=== PATIENT | female | born 1955 | race Caucasian/White ===

== ENCOUNTER 2018-04-30 09:44 | Outpatient (CLI) | payer MEDICARE ==
--- NOTE | 2018-04-30 12:04 | RAD ---
THREE VIEWS RIGHT SHOULDER: Date: 04-30-18 History: Acute pain right shoulder. FINDINGS: There is osteoarthritis involving the right shoulder. Sclerotic density is seen within the region of the spine and acromion which are nonspecific and probably related to bone island. There is no fractur e at this location identified. Coracoclavicular and acromioclavicular distances are within normal funes its. Degenerative changes are seen in the thoracic spine. There is partial visualization of post-surg ical changes lower cervical spine. IMPRESSION: 1. Right acromioclavicular joint osteoarthritis. 2. No acute osseous abnormality is seen involving the right shoulder. POS: [facility]
== END 2018-04-30 09:45 | disposition home or self-care (01) ==
LOC: RAD 09:44
PROVIDERS: ATTEND Nurse Practitioner Family
DX: M25.511 Pain in right shoulder (principal); M19.011 Primary osteoarthritis, right shoulder

== ENCOUNTER 2019-09-09 09:45 | Outpatient (CLI) | payer MEDICARE ==
--- NOTE | 2019-09-09 10:53 | MRI ---
MR the lumbar spine without contrast INDICATION: Postlaminectomy syndrome with low back pain; history of fall 2 weeks ago COMPARISON: CT lumbar spine dated July 22, 2009 TECHNIQUE: Multiplanar multisequence MR images were obtained of lumbar spine without IV contrast. FINDINGS: Bone marrow: There is susceptibility artifact from an Axialif screw interbody screw system traversing S1-L4. The remaining lumbar marrow signal intensity appears within normal limits. There is postsurgical change of a left hemilaminectomy at L4. There are bilateral hemilaminectomies at L5. Sma ll bony hemangioma is seen within the L1 vertebra. Distal spinal cord and conus: Normal. The conus seen to terminate at L1. Visualized retroperitoneum and paraspinal soft tissues: Normal. Vertebral levels: L5-S1: There is a broad-based osteophyte complex with facet hypertrophy inducing mild neural foramina l narrowing. This also induces mild lateral recess narrowing on image 29 of series 7 without definite impingement.. L4-5: There is a broad-based osteophyte complex with facet hypertrophy inducing mild bilateral neural foraminal narrowing, left greater than right. L3-4: There is a broad-based disc bulge with facet hypertrophy and ligamentum flavum hypertrophy karen cing severe central canal narrowing with moderate to severe right and moderate left neural foraminal narrowing. L2-3: There is a broad-based bulge with facet hypertrophy inducing moderate to severe central canal n arrowing with moderate bilateral neural foraminal narrowing. L1-L2: There is a broad-based disc osteophyte complex with facet hypertrophy inducing mild to moderat e right and moderate left neural foraminal narrowing. T12-L1: There is a broad-based bulge but no appreciable central canal or neural foraminal narrowing. IMPRESSION: 1. Postoperative lumbar spine consistent with an Axialif screw system extending from L4 through S1. T here are also laminectomy changes at L4 and L5. 2. 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 There is severe central canal narrowing at L3-4 with moderate to severe right and moderate left neural foraminal narrowing. There is moderate to severe central canal narrowing at L2-3 with moderate bilateral neural foraminal narrowing . 3. Mild to moderate right and moderate left neural foraminal narrowing at L1-L2. Mild lateral recess narrowing and mild bilateral neural foraminal narrowing at L5-S1.
== END 2019-09-09 09:46 | disposition home or self-care (01) ==
LOC: BICMRI 09:45
PROVIDERS: ATTEND Nurse Practitioner Family
DX: M96.1 Postlaminectomy syndrome, not elsewhere classified (principal); M51.36 Other intervertebral disc degeneration, lumbar region; M48.061 Spinal stenosis, lumbar region without neurogenic claudication; M48.07 Spinal stenosis, lumbosacral region; Z98.890 Other specified postprocedural states
CPT/HCPCS: 72148

== ENCOUNTER 2021-09-15 11:15 | Outpatient (CLI) | payer MEDICARE | END 2021-09-15 11:16 | disposition home or self-care (01) | LOC: CT 11:15 | PROVIDERS: ATTEND Family Medicine | DX: N28.89 Other specified disorders of kidney and ureter (principal); R91.1 Solitary pulmonary nodule; K76.0 Fatty (change of) liver, not elsewhere classified; K57.30 Diverticulosis of large intestine without perforation or abscess without bleeding | CPT/HCPCS: 74170; 82565 ==

== ENCOUNTER 2021-09-28 08:43 | Outpatient (CLI) | payer MEDICARE ==
[~2021-09-28 08:43] MED LIST: Iopamidol 370 76% 100 ML VIAL ONE
== END 2021-09-28 08:44 | disposition home or self-care (01) ==
LOC: NM 08:43
PROVIDERS: ATTEND Family Medicine
DX: N28.89 Other specified disorders of kidney and ureter (principal); R91.1 Solitary pulmonary nodule; M19.90 Unspecified osteoarthritis, unspecified site; M47.819 Spondylosis without myelopathy or radiculopathy, site unspecified
CPT/HCPCS: 71260; 78306; 82565; A9503

== ENCOUNTER 2021-10-22 15:37 | Outpatient (CLI) | payer MEDICARE | END 2021-10-22 15:38 | disposition home or self-care (01) | LOC: LABBT 15:37 | PROVIDERS: ATTEND Urology | DX: Z01.818 Encounter for other preprocedural examination (principal); E11.42 Type 2 diabetes mellitus with diabetic polyneuropathy; E11.40 Type 2 diabetes mellitus with diabetic neuropathy, unspecified; M46.1 Sacroiliitis, not elsewhere classified; I10 Essential (primary) hypertension; M48.062 Spinal stenosis, lumbar region with neurogenic claudication; N28.89 Other specified disorders of kidney and ureter; E66.9 Obesity, unspecified; N28.1 Cyst of kidney, acquired; R91.1 Solitary pulmonary nodule; Z20.822 Contact with and (suspected) exposure to COVID-19 | CPT/HCPCS: 71046; 80048; 85027; 85610; 85730; 86850; 86900; 86901; 93005; U0003; U0005; 93010 ==

== ENCOUNTER 2021-10-22 15:45 | Inpatient (IN) | payer MEDICARE ==
[2021-10-22 11:00] VITALS: BMI 35.4
[2021-10-22 17:36] LABS: Hemoglobin 12.3 g/dL (12.0-15.5); Mean Corpuscular HGB CONC 32.2 g/dL (32.0-36.0); Mean Corpuscular Hemoglobin 30.1 pg (27.0-33.0); Mean Corpuscular Volume 93.4 fl (81.6-98.3); Mean Platelet Volume 9.9 fl (7.4-10.4); Platelet Count 288 10x3/uL (150-450); RBC Distribution Width 12.3 % (11.5-14.5); Red Blood Cell (RBC) Count 4.09 10x6/uL (3.90-5.03); White Blood Cell (WBC) Count 7.7 10x3/uL (3.5-10.5)
[2021-10-22 17:39] LABS: Anion Gap 16 mmol/L (10-20); BUN (Urea Nitrogen) 15 mg/dL (9.8-20.1); Calc. Creatinine Clearance 0 mL/min (70-130); Carbon Dioxide 25 mmol/L (23-31); Chloride 102 mmol/L (98-107); Glucose 174 mg/dL (80-115); Potassium 4.1 mmol/L (3.5-5.1); Sodium 139 mmol/L (136-145)
[2021-10-22 17:42] LABS: INR-International Normal Ratio 0.9; PTT 23.5 sec (22.0-33.0); Prothrombin Time 10.4 sec (9.5-12.1)
[2021-10-23 12:54] LABS: SARS-CoV-2 PCR by NAA Not Detected (NotDetected)
[2021-11-03 19:10] LABS: SARS-CoV-2 PCR by NAA Not Detected (NotDetected)
[2021-11-08] MEDS ORDERED: Levofloxacin 500 mg/D5W 100 ml Premix Bag ONE (06:33)
[2021-11-08] MEDS ORDERED: Sodium Chloride 0.9% 10 ML ONE (06:55)
[2021-11-08] MEDS ORDERED: Midazolam HCl 2 mg/2 ml Vial ONE (06:57)
[2021-11-08] MEDS ORDERED: Lidocaine 1.5% w/Epi 1:200K 30 ML VIAL (Epid Use) ONE (07:14)
[2021-11-08] MEDS ORDERED: Glycopyrrolate 0.2 MG/ML 5 ML SYRINGE ONE (07:14)
[2021-11-08] MEDS ORDERED: PROPOFOL 200 MG/20 ML VIAL ONE (07:14)
[2021-11-08] MEDS ORDERED: Rocuronium Bromide 10 MG/ML (10ML VIAL) ONE (07:14)
[2021-11-08] MEDS ORDERED: ePHEDrine 50 MG/ML VIAL ONE (07:14)
[2021-11-08] MEDS ORDERED: Ondansetron PF 4 MG/2 ML Vial ONE (07:14)
[2021-11-08] MEDS ORDERED: PHENYLEPHRINE-NS 100 MCG/ML 10 ML SYRINGE ONE (07:14)
[2021-11-08] MEDS ORDERED: ceFAZolin 2 GM/Dextrose 50 ML IVPB ONE (07:31)
[2021-11-08] MEDS ORDERED: Fentanyl 100 MCG/2 ML VIAL ONE ×4 (07:33→11:57)
[2021-11-08] MEDS ORDERED: Ropivacaine 0.2% HCl/PF 20 ML ONE (07:36)
[2021-11-08] MEDS ORDERED: Albumin 5% 500 ML ONE (08:29)
[2021-11-08] MEDS ORDERED: Phenylephrine 10 MG/ML VIAL ONE (08:40)
[2021-11-08] MEDS ORDERED: diphenhydrAMINE 50 MG/ML VIAL IVP PRN ×2 (09:00→20:37)
[2021-11-08] MEDS ORDERED: Naloxone HCl 0.4 mg/ml Vial IV PRN ×2 (09:00→20:37)
[2021-11-08] MEDS ORDERED: Naloxone HCl 0.4 mg/ml Vial IVP PRN (09:00)
[2021-11-08] MEDS ORDERED: Zolpidem Tartrate 5 MG TAB PO PRN (09:00)
[2021-11-08] MEDS ORDERED: Ondansetron PF 4 MG/2 ML Vial IVP PRN ×2 (09:00→20:37)
[2021-11-08] MEDS ORDERED: Fentanyl 5 mcg/Bup 0.075% Cadd 100 ML EPIDURAL SCH (09:00)
[2021-11-08] MEDS ORDERED: diphenhydrAMINE 50 MG/ML VIAL IM PRN ×2 (09:00→20:37)
[2021-11-08] MEDS ORDERED: Bupivacaine 0.25% 10 ML VIAL EPIDURAL PRN (09:00)
[2021-11-08] MEDS ORDERED: Promethazine HCl 25 MG/ML VIAL IM PRN ×2 (09:00→20:37)
[2021-11-08] MEDS ORDERED: Promethazine HCl 25 MG SUPP PR PRN (09:00)
[2021-11-08] MEDS ORDERED: traMADol HCl 50 MG TAB PO PRN ×2 (09:00)
[2021-11-08] MEDS ORDERED: diphenhydrAMINE 25 MG CAP PO PRN ×2 (09:00→20:37)
[2021-11-08] MEDS ORDERED: Hydrocerin (Eucerin) Cream 120 gm Jar TOP PRN (09:00)
[2021-11-08] MEDS ORDERED: HYDROcodone/Acetaminophen 5/325 mg Tablet PO PRN ×2 (09:00)
[2021-11-08] MEDS ORDERED: Dextrose 5% in Water 1,000 ML IV PRN (09:48)
[2021-11-08] MEDS ORDERED: Mag-Al 1200 mg/1200 mg/30 ML UDCUP PO PRN (09:48)
[2021-11-08] MEDS ORDERED: Dextrose 50% Abboject 50 ML SYRINGE SLOW IVP PRN (09:48)
[2021-11-08] MEDS ORDERED: hydrALAZINE 20 MG/ML VIAL SLOW IVP PRN ×2 (09:48)
[2021-11-08 11:15] LABS: #Eosinphils 0.1 thou/uL (0.0-0.7); #Lymphocytes 2.6 thou/uL (1.20-3.40); #Monocytes 0.5 thou/uL (0.11-0.59); %Basophils 0.1 % (0.0-1.0); %Eosinophils 0.7 % (0.0-10.0); %Lymphocytes 23.1 % (21.0-51.0); %Monocytes 4.2 % (0.0-10.0); Hemoglobin 10.2 g/dL (12.0-16.0); Mean Corpuscular HGB CONC 33.3 g/dL (32.0-36.0); Mean Corpuscular Hemoglobin 30.8 pg (27.0-31.0); Mean Corpuscular Volume 92.6 fL (78.0-98.0); Mean Platelet Volume 6.4 fL (7.4-10.4); Platelet Count 270 thou/uL (130-400); RBC Distribution Width 11.5 % (11.5-14.5); Red Blood Cell (RBC) Count 3.31 mill/uL (4.20-5.40); White Blood Cell (WBC) Count 11.2 thou/uL (4.8-10.8)
[2021-11-08 11:28] LABS: Anion Gap 15 mmol/L (10-20); BUN (Urea Nitrogen) 16 mg/dL (9.8-20.1); Calc. Creatinine Clearance 70 mL/min (70-130); Carbon Dioxide 24 mmol/L (23-31); Chloride 102 mmol/L (98-107); Glucose 167 mg/dL (80-115); Potassium 3.8 mmol/L (3.5-5.1); Sodium 137 mmol/L (136-145)
[2021-11-08] MEDS ORDERED: HYDROmorphone 2 MG/ML VIAL ONE ×2 (12:09→15:17)
[2021-11-08] MEDS ORDERED: Non-Formulary Medication 1 EACH PO PRN (12:19)
[2021-11-08] MEDS ORDERED: Promethazine HCl 25 MG/ML VIAL IM/IV PRN (12:30)
[2021-11-08] MEDS ORDERED: Ondansetron HCl/PF 4 MG/2 ML Vial IVP PRN (12:30)
[2021-11-08] MEDS ORDERED: HYDROmorphone 2 MG/ML VIAL SLOW IVP PRN (12:30)
[2021-11-08] MEDS ORDERED: Gabapentin 400 MG CAP PO SCH (15:00)
[2021-11-08] MEDS: Sodium Chloride 0.9% 1,000 ML IV SCH ×2 (15:14→22:17)
[2021-11-08 15:33] LABS: Hemoglobin 9.9 g/dL (12.0-16.0)
[2021-11-08] MEDS ORDERED: metFORMIN 500 MG TAB PO SCH (17:00)
[2021-11-08] MEDS: Gabapentin 400 MG CAP PO SCH ×2 (17:25→22:18)
[2021-11-08] MEDS ORDERED: Communication Order-Pharmacy FS SCH (20:45)
[2021-11-08] MEDS ORDERED: VENLAFAXINE HCL 150 MG PO SCH (21:00)
[2021-11-08] MEDS ORDERED: traZODone HCl 150 MG TAB PO SCH (21:00)
[2021-11-08 21:24] LABS: #Lymphocytes 2.5 thou/uL (1.20-3.40); #Monocytes 0.6 thou/uL (0.11-0.59); #Neutrophils 5.9 thou/uL (1.40-6.50); %Basophils 0.2 % (0.0-1.0); %Eosinophils 0.2 % (0.0-10.0); %Lymphocytes 27.9 % (21.0-51.0); %Monocytes 6.7 % (0.0-10.0); Hemoglobin 9.6 g/dL (12.0-16.0); Mean Corpuscular HGB CONC 34.3 g/dL (32.0-36.0); Mean Corpuscular Hemoglobin 31.9 pg (27.0-31.0); Mean Platelet Volume 6.4 fL (7.4-10.4); Platelet Count 234 thou/uL (130-400); RBC Distribution Width 11.7 % (11.5-14.5)
[2021-11-08 21:41] LABS: Lactic Acid 3.4 mmol/L (0.5-2.2)
[2021-11-08 21:46] LABS: ALT (SGPT) 17 U/L (8-55); AST (SGOT) 31 U/L (5-34); Albumin 3.6 g/dL (3.4-4.8); Alkaline Phosphatase 44 U/L (40-110); Anion Gap 13 mmol/L (10-20); BUN (Urea Nitrogen) 18 mg/dL (9.8-20.1); Bilirubin, Total 0.9 mg/dL (0.2-1.2); Calc. Creatinine Clearance 53 mL/min (70-130); Calcium 7.6 mg/dL (7.8-10.44); Carbon Dioxide 24 mmol/L (23-31); Chloride 101 mmol/L (98-107); Globulin 2.3 g/dL (2.4-3.5); Glucose 169 mg/dL (80-115); Potassium 4.1 mmol/L (3.5-5.1); Protein, Total 5.9 g/dL (5.8-8.1); Sodium 134 mmol/L (136-145)
[2021-11-08] MEDS: fentaNYL Citrate/PF 2,000 MCG in Sodium Chloride 0.9% 60 ML IV PRN (22:16)
[2021-11-08] MEDS: Bupivacaine 10 ML in Sodium Chloride 0.9% 90 ML EPIDURAL SCH (22:17)
[2021-11-08] MEDS: traZODone HCl 50 MG TAB PO SCH (22:18)
[2021-11-08] MEDS: Docusate 100 MG CAP PO SCH (22:18)
[2021-11-08] MEDS: Venlafaxine HCl XR 150 MG CAP PO SCH (22:19)
[2021-11-09] MEDS ORDERED: Sodium Chloride 0.9% 500 ML IV SCH (00:30)
[2021-11-09 02:18] LABS: Bacteria/HPF None Seen HPF (None Seen); Bilirubin Negative (Negative); Blood, Urine 1+ (Negative); Clarity Clear (Clear); Glucose, Urine (Dipstick) Normal (Negative); Ketone, Urine Negative (Negative); Leukocyte 250 Leu/uL (Negative); Nitrite Negative (Negative); Protein, Urine (Dipstick) Negative (Neg-Trace); RBC/HPF 0-3 HPF (0-3); Specific Gravity, Urine 1.013 (1.002-1.036); Squamous Epithelial 0-3 HPF (0-3); Urobilinogen Normal mg/dL (Less than 2); WBC/HPF 21-50 HPF (0-3)
[2021-11-09 02:30] LABS: Urine Culture Reflex Yes Yes
[2021-11-09 04:54] LABS: #Monocytes 0.6 thou/uL (0.11-0.59); #Neutrophils 4.5 thou/uL (1.40-6.50); %Basophils 0.1 % (0.0-1.0); %Eosinophils 0.6 % (0.0-10.0); %Lymphocytes 27.8 % (21.0-51.0); %Monocytes 8.5 % (0.0-10.0); Mean Corpuscular Hemoglobin 31.2 pg (27.0-31.0); Mean Corpuscular Volume 94.6 fL (78.0-98.0); Mean Platelet Volume 6.3 fL (7.4-10.4); Platelet Count 201 thou/uL (130-400); RBC Distribution Width 11.6 % (11.5-14.5); Red Blood Cell (RBC) Count 2.89 mill/uL (4.20-5.40); White Blood Cell (WBC) Count 7.1 thou/uL (4.8-10.8)
[2021-11-09 05:07] LABS: Lactic Acid 1.1 mmol/L (0.5-2.2)
[2021-11-09] MEDS: Acetaminophen 500 MG TAB PO PRN ×3 (05:11→22:29)
[2021-11-09] MEDS: Sodium Chloride 0.9% 1,000 ML IV SCH (05:11)
[2021-11-09 05:14] LABS: Anion Gap 12 mmol/L (10-20); BUN (Urea Nitrogen) 16 mg/dL (9.8-20.1); Calc. Creatinine Clearance 54 mL/min (70-130); Calcium 7.5 mg/dL (7.8-10.44); Carbon Dioxide 25 mmol/L (23-31); Chloride 102 mmol/L (98-107); Glucose 148 mg/dL (80-115); Potassium 4.1 mmol/L (3.5-5.1); Sodium 135 mmol/L (136-145)
[2021-11-09] MEDS: cefTRIAXone\\ROCEPHIN 1 GM in Sodium Chloride 0.9% 100 ML IVPB SCH (06:13)
[2021-11-09] MEDS ORDERED: Sodium Chloride 0.9% 1,000 ML IV SCH (07:27)
[2021-11-09] MEDS ORDERED: CYANOCOBALAMIN 500 MCG SL SCH (09:00)
[2021-11-09] MEDS ORDERED: Lisinopril/Hydrochlorothiazide 20 mg/12.5 mg Tablet PO SCH (09:00)
[2021-11-09] MEDS: Atorvastatin Calcium 40 MG TAB PO SCH (10:10)
[2021-11-09] MEDS: Gabapentin 400 MG CAP PO SCH ×3 (10:10→21:04)
[2021-11-09] MEDS: Docusate 100 MG CAP PO SCH ×2 (10:10→21:05)
[2021-11-09] MEDS: Cyanocobalamin (Vitamin B-12) 1,000 MCG TAB PO SCH (10:11)
[2021-11-09] MEDS: Aripiprazole 2 MG TAB PO SCH (12:47)
[2021-11-09] MEDS ORDERED: Ropivacaine 0.5% HCl/PF (150 MG/30 ML VIAL) ONE (13:03)
[2021-11-09] MEDS ORDERED: Ropivacaine 0.2% HCl/PF 20 ML ONE (13:03)
[2021-11-09] MEDS: traZODone HCl 50 MG TAB PO SCH (21:04)
[2021-11-09] MEDS: Venlafaxine HCl XR 150 MG CAP PO SCH (21:04)
[2021-11-10] MEDS: Bupivacaine 10 ML in Sodium Chloride 0.9% 90 ML EPIDURAL SCH (00:12)
[2021-11-10] MEDS: fentaNYL Citrate/PF 2,000 MCG in Sodium Chloride 0.9% 60 ML IV PRN (04:01)
[2021-11-10] MEDS: Acetaminophen 500 MG TAB PO PRN ×2 (05:31→20:58)
[2021-11-10] MEDS: cefTRIAXone\\ROCEPHIN 1 GM in Sodium Chloride 0.9% 100 ML IVPB SCH (06:20)
[2021-11-10 06:35] LABS: #Eosinphils 0.1 thou/uL (0.0-0.7); #Lymphocytes 1.7 thou/uL (1.20-3.40); #Monocytes 0.5 thou/uL (0.11-0.59); #Neutrophils 5.9 thou/uL (1.40-6.50); %Basophils 0.2 % (0.0-1.0); %Eosinophils 1.1 % (0.0-10.0); %Monocytes 5.9 % (0.0-10.0); %Neutrophils 71.8 % (42.0-75.0); Hemoglobin 8.5 g/dL (12.0-16.0); Mean Corpuscular HGB CONC 33.4 g/dL (32.0-36.0); Mean Corpuscular Hemoglobin 31.5 pg (27.0-31.0); Mean Corpuscular Volume 94.5 fL (78.0-98.0); Mean Platelet Volume 6.5 fL (7.4-10.4); Platelet Count 198 thou/uL (130-400); RBC Distribution Width 11.5 % (11.5-14.5); White Blood Cell (WBC) Count 8.2 thou/uL (4.8-10.8)
[2021-11-10 06:56] LABS: Anion Gap 11 mmol/L (10-20); BUN (Urea Nitrogen) 13 mg/dL (9.8-20.1); Calc. Creatinine Clearance 61 mL/min (70-130); Calcium 7.9 mg/dL (7.8-10.44); Carbon Dioxide 23 mmol/L (23-31); Chloride 103 mmol/L (98-107); Glucose 159 mg/dL (80-115); Sodium 133 mmol/L (136-145)
[2021-11-10] MEDS: Cyanocobalamin (Vitamin B-12) 1,000 MCG TAB PO SCH (08:10)
[2021-11-10] MEDS: Docusate 100 MG CAP PO SCH ×2 (08:11→20:59)
[2021-11-10] MEDS: Atorvastatin Calcium 40 MG TAB PO SCH (08:11)
[2021-11-10] MEDS: Bisacodyl 10 MG SUPP PR PRN (08:11)
[2021-11-10] MEDS: Aripiprazole 2 MG TAB PO SCH (08:11)
[2021-11-10] MEDS: Gabapentin 400 MG CAP PO SCH ×3 (08:11→20:59)
[2021-11-10] MEDS: Insulin Regular 300 UNITS/3 ML VIAL SC PRN (10:49)
[2021-11-10 12:40] LABS: Hemoglobin 8.6 g/dL (12.0-16.0)
[2021-11-10] MEDS: Venlafaxine HCl XR 150 MG CAP PO SCH (20:58)
[2021-11-10] MEDS: traZODone HCl 50 MG TAB PO SCH (20:59)
[2021-11-11] MEDS: Acetaminophen 500 MG TAB PO PRN (04:50)
[2021-11-11] MEDS: fentaNYL Citrate/PF 2,000 MCG in Sodium Chloride 0.9% 60 ML IV PRN (06:01)
[2021-11-11] MEDS: cefTRIAXone\\ROCEPHIN 1 GM in Sodium Chloride 0.9% 100 ML IVPB SCH (06:02)
[2021-11-11 06:56] LABS: White Blood Cell (WBC) Count 7.3 thou/uL (4.8-10.8)
[2021-11-11 06:57] LABS: #Eosinphils 0.1 thou/uL (0.0-0.7); #Lymphocytes 1.7 thou/uL (1.20-3.40); #Monocytes 0.4 thou/uL (0.11-0.59); #Neutrophils 5.1 thou/uL (1.40-6.50); %Basophils 0.2 % (0.0-1.0); %Eosinophils 1.5 % (0.0-10.0); %Lymphocytes 22.7 % (21.0-51.0); %Neutrophils 69.6 % (42.0-75.0); Hemoglobin 8.3 g/dL (12.0-16.0); Mean Corpuscular Hemoglobin 31.8 pg (27.0-31.0); Mean Corpuscular Volume 93.5 fL (78.0-98.0); Mean Platelet Volume 6.9 fL (7.4-10.4); Platelet Count 217 thou/uL (130-400); RBC Distribution Width 11.6 % (11.5-14.5)
[2021-11-11 07:21] LABS: Anion Gap 10 mmol/L (10-20); BUN (Urea Nitrogen) 11 mg/dL (9.8-20.1); Calc. Creatinine Clearance 73 mL/min (70-130); Calcium 8.1 mg/dL (7.8-10.44); Carbon Dioxide 26 mmol/L (23-31); Chloride 104 mmol/L (98-107); Glucose 144 mg/dL (80-115); Potassium 4.3 mmol/L (3.5-5.1); Sodium 136 mmol/L (136-145)
[2021-11-11] MEDS: Gabapentin 400 MG CAP PO SCH ×3 (08:24→21:03)
[2021-11-11] MEDS: Atorvastatin Calcium 40 MG TAB PO SCH (08:24)
[2021-11-11] MEDS: Aripiprazole 2 MG TAB PO SCH (08:24)
[2021-11-11] MEDS: Cyanocobalamin (Vitamin B-12) 1,000 MCG TAB PO SCH (08:24)
[2021-11-11] MEDS: Docusate 100 MG CAP PO SCH ×2 (08:24→21:03)
[2021-11-11] MEDS: Insulin Regular 300 UNITS/3 ML VIAL SC PRN (11:20)
[2021-11-11] MEDS: Bisacodyl 10 MG SUPP PR PRN ×2 (11:21→13:15)
[2021-11-11] MEDS ORDERED: Polyethylene Glycol 3350 17 GM Packet PO SCH (13:30)
[2021-11-11] MEDS: Acetaminophen 500 MG TAB PO SCH (17:04)
[2021-11-11] MEDS: Venlafaxine HCl XR 150 MG CAP PO SCH (21:04)
[2021-11-11] MEDS: traZODone HCl 50 MG TAB PO SCH (21:04)
[2021-11-11] MEDS: Bupivacaine 10 ML in Sodium Chloride 0.9% 90 ML EPIDURAL SCH (21:06)
[2021-11-12] MEDS: Acetaminophen 500 MG TAB PO SCH ×5 (00:07→23:23)
[2021-11-12] MEDS: cefTRIAXone\\ROCEPHIN 1 GM in Sodium Chloride 0.9% 100 ML IVPB SCH (06:01)
[2021-11-12 07:17] LABS: #Eosinphils 0.2 thou/uL (0.0-0.7); #Monocytes 0.6 thou/uL (0.11-0.59); #Neutrophils 4.7 thou/uL (1.40-6.50); %Basophils 0.5 % (0.0-1.0); %Eosinophils 2.9 % (0.0-10.0); %Lymphocytes 26.5 % (21.0-51.0); %Monocytes 7.9 % (0.0-10.0); %Neutrophils 62.1 % (42.0-75.0); Hemoglobin 8.2 g/dL (12.0-16.0); Mean Corpuscular HGB CONC 32.7 g/dL (32.0-36.0); Mean Corpuscular Hemoglobin 31.1 pg (27.0-31.0); Mean Corpuscular Volume 95.3 fL (78.0-98.0); Mean Platelet Volume 6.4 fL (7.4-10.4); Platelet Count 276 thou/uL (130-400); RBC Distribution Width 11.7 % (11.5-14.5); Red Blood Cell (RBC) Count 2.62 mill/uL (4.20-5.40); White Blood Cell (WBC) Count 7.5 thou/uL (4.8-10.8)
[2021-11-12 07:32] LABS: Anion Gap 11 mmol/L (10-20); BUN (Urea Nitrogen) 11 mg/dL (9.8-20.1); Calc. Creatinine Clearance 73 mL/min (70-130); Calcium 8.2 mg/dL (7.8-10.44); Carbon Dioxide 26 mmol/L (23-31); Chloride 105 mmol/L (98-107); Glucose 122 mg/dL (80-115); Sodium 138 mmol/L (136-145)
[2021-11-12] MEDS: Docusate 100 MG CAP PO SCH ×2 (08:18→20:13)
[2021-11-12] MEDS: Cyanocobalamin (Vitamin B-12) 1,000 MCG TAB PO SCH (08:18)
[2021-11-12] MEDS: Aripiprazole 2 MG TAB PO SCH (08:18)
[2021-11-12] MEDS: Gabapentin 400 MG CAP PO SCH ×3 (08:19→20:14)
[2021-11-12] MEDS: Atorvastatin Calcium 40 MG TAB PO SCH (08:19)
[2021-11-12] MEDS: Polyethylene Glycol 3350 17 GM Packet PO SCH (08:19)
[2021-11-12] MEDS: fentaNYL Citrate/PF 2,000 MCG in Sodium Chloride 0.9% 60 ML IV PRN (14:03)
[2021-11-12] MEDS ORDERED: Amlodipine 5 MG TAB PO SCH (15:30)
[2021-11-12] MEDS: Venlafaxine HCl XR 150 MG CAP PO SCH (21:53)
[2021-11-12] MEDS: traZODone HCl 50 MG TAB PO SCH (21:53)
[2021-11-13] MEDS ORDERED: Acetaminophen 500 MG TAB PO PRN (04:05)
[2021-11-13] MEDS: HYDROcodone/Acetaminophen 10/325 mg Tablet PO PRN ×3 (04:51→20:17)
[2021-11-13 05:28] LABS: #Eosinphils 0.2 thou/uL (0.0-0.7); #Lymphocytes 1.7 thou/uL (1.20-3.40); #Monocytes 0.7 thou/uL (0.11-0.59); #Neutrophils 4.2 thou/uL (1.40-6.50); %Basophils 0.2 % (0.0-1.0); %Eosinophils 3.3 % (0.0-10.0); %Lymphocytes 25.2 % (21.0-51.0); %Monocytes 9.9 % (0.0-10.0); %Neutrophils 61.5 % (42.0-75.0); Hemoglobin 8.7 g/dL (12.0-16.0); Mean Corpuscular Hemoglobin 31.2 pg (27.0-31.0); Mean Corpuscular Volume 94.5 fL (78.0-98.0); Mean Platelet Volume 6.4 fL (7.4-10.4); Platelet Count 312 thou/uL (130-400); RBC Distribution Width 11.7 % (11.5-14.5); Red Blood Cell (RBC) Count 2.79 mill/uL (4.20-5.40); White Blood Cell (WBC) Count 6.8 thou/uL (4.8-10.8)
[2021-11-13 05:48] LABS: Anion Gap 12 mmol/L (10-20); BUN (Urea Nitrogen) 11 mg/dL (9.8-20.1); Calc. Creatinine Clearance 80 mL/min (70-130); Carbon Dioxide 24 mmol/L (23-31); Chloride 105 mmol/L (98-107); Potassium 3.9 mmol/L (3.5-5.1); Sodium 137 mmol/L (136-145)
[2021-11-13 05:49] LABS: Calcium 8.6 mg/dL (7.8-10.44); Glucose 121 mg/dL (80-115)
[2021-11-13] MEDS: Polyethylene Glycol 3350 17 GM Packet PO SCH (08:06)
[2021-11-13] MEDS: Amlodipine 5 MG TAB PO SCH (08:07)
[2021-11-13] MEDS: Cyanocobalamin (Vitamin B-12) 1,000 MCG TAB PO SCH (08:07)
[2021-11-13] MEDS: Atorvastatin Calcium 40 MG TAB PO SCH (08:07)
[2021-11-13] MEDS: Gabapentin 400 MG CAP PO SCH ×3 (08:07→20:16)
[2021-11-13] MEDS: Aripiprazole 2 MG TAB PO SCH (08:08)
[2021-11-13] MEDS: Docusate 100 MG CAP PO SCH ×2 (08:08→20:16)
[2021-11-13] MEDS: metFORMIN 500 MG TAB PO SCH (16:52)
[2021-11-13] MEDS: traZODone HCl 50 MG TAB PO SCH (20:17)
[2021-11-13] MEDS: Venlafaxine HCl XR 150 MG CAP PO SCH (20:17)
[2021-11-14] MEDS: HYDROcodone/Acetaminophen 10/325 mg Tablet PO PRN ×4 (00:15→13:30)
[2021-11-14 05:09] LABS: #Eosinphils 0.3 thou/uL (0.0-0.7); #Lymphocytes 2.5 thou/uL (1.20-3.40); #Monocytes 0.6 thou/uL (0.11-0.59); #Neutrophils 3.8 thou/uL (1.40-6.50); %Basophils 0.5 % (0.0-1.0); %Eosinophils 3.7 % (0.0-10.0); %Lymphocytes 34.5 % (21.0-51.0); %Monocytes 8.7 % (0.0-10.0); %Neutrophils 52.6 % (42.0-75.0); Hemoglobin 8.5 g/dL (12.0-16.0); Mean Corpuscular HGB CONC 33.5 g/dL (32.0-36.0); Mean Corpuscular Hemoglobin 31.7 pg (27.0-31.0); Mean Corpuscular Volume 94.5 fL (78.0-98.0); Mean Platelet Volume 6.4 fL (7.4-10.4); Platelet Count 336 thou/uL (130-400); RBC Distribution Width 11.6 % (11.5-14.5); Red Blood Cell (RBC) Count 2.68 mill/uL (4.20-5.40); White Blood Cell (WBC) Count 7.3 thou/uL (4.8-10.8)
[2021-11-14 05:33] LABS: Anion Gap 10 mmol/L (10-20); BUN (Urea Nitrogen) 11 mg/dL (9.8-20.1); Calc. Creatinine Clearance 94 mL/min (70-130); Calcium 8.6 mg/dL (7.8-10.44); Carbon Dioxide 28 mmol/L (23-31); Chloride 104 mmol/L (98-107); Glucose 145 mg/dL (80-115); Potassium 4.1 mmol/L (3.5-5.1); Sodium 138 mmol/L (136-145)
[2021-11-14] MEDS: Docusate 100 MG CAP PO SCH (09:31)
[2021-11-14] MEDS: Polyethylene Glycol 3350 17 GM Packet PO SCH (09:31)
[2021-11-14] MEDS: metFORMIN 500 MG TAB PO SCH (09:32)
[2021-11-14] MEDS: Cyanocobalamin (Vitamin B-12) 1,000 MCG TAB PO SCH (09:32)
[2021-11-14] MEDS: Atorvastatin Calcium 40 MG TAB PO SCH (09:32)
[2021-11-14] MEDS: Gabapentin 400 MG CAP PO SCH (09:33)
[2021-11-14] MEDS: Amlodipine 5 MG TAB PO SCH (09:34)
[2021-11-14] MEDS: Aripiprazole 2 MG TAB PO SCH (09:40)
[2021-11-14 12:28] VITALS: BP 137/83; TEMP 97.7
== END 2021-11-14 15:00 | disposition home or self-care (01) | DRG 657 ==
LOC: EDSTATUS 10-27 15:45 → SURG A 11-08 06:04 → SJJU 11-08 16:36
PROVIDERS: ADMIT Urology; ATTEND Urology
PROC: 0TT10ZZ Resection of Left Kidney, Open Approach (ICD-10-PCS; principal; 2021-11-08)
DX: C64.2 Malignant neoplasm of left kidney, except renal pelvis (principal); Z20.822 Contact with and (suspected) exposure to COVID-19; F11.20 Opioid dependence, uncomplicated; E87.1 Hypo-osmolality and hyponatremia; E87.2 Acidosis; N17.9 Acute kidney failure, unspecified; G89.29 Other chronic pain; M54.12 Radiculopathy, cervical region; M54.16 Radiculopathy, lumbar region; E11.42 Type 2 diabetes mellitus with diabetic polyneuropathy; E78.5 Hyperlipidemia, unspecified; J30.9 Allergic rhinitis, unspecified; G47.00 Insomnia, unspecified; M46.1 Sacroiliitis, not elsewhere classified; M48.062 Spinal stenosis, lumbar region with neurogenic claudication; R91.1 Solitary pulmonary nodule; N18.30 Chronic kidney disease, stage 3 unspecified; I12.9 Hypertensive chronic kidney disease with stage 1 through stage 4 chronic kidney disease, or unspecified chronic kidney disease; E11.22 Type 2 diabetes mellitus with diabetic chronic kidney disease; F41.9 Anxiety disorder, unspecified; D63.1 Anemia in chronic kidney disease; D64.89 Other specified anemias; E83.51 Hypocalcemia; I95.9 Hypotension, unspecified; K59.00 Constipation, unspecified; R00.0 Tachycardia, unspecified; E66.01 Morbid (severe) obesity due to excess calories; Z68.35 Body mass index [BMI] 35.0-35.9, adult; Z79.899 Other long term (current) drug therapy; Z79.82 Long term (current) use of aspirin; Z79.84 Long term (current) use of oral hypoglycemic drugs; Z90.710 Acquired absence of both cervix and uterus; Z88.8 Allergy status to other drugs, medicaments and biological substances
CPT/HCPCS: 36415; 36416; 71045; 80048; 81001; 82306; 83605; 83970; 85025; 85027; 85610; 85730; 86850; 86900; 86901; 87040; 87086; 88307; 88341; 88342; 93005; 93010; A4649; C1713; C1776; C1889; J0690; J0696; J1170; J1815; J1956; J2001; J2250; J2370; J2405; J2704; J2795; J3010; J3490; J7050; P9045; U0003; U0005

== ENCOUNTER 2021-11-03 08:44 | Outpatient (CLI) | payer MEDICARE ==
[2021-11-03 09:44] LABS: Bilirubin Neg (Negative); Blood, Urine Negative (Negative); Clarity Clear (Clear); Glucose, Urine (Dipstick) Normal (Negative); Ketone, Urine Negative (Negative); Leukocyte Negative (Negative); Nitrite Negative (Negative); Protein, Urine (Dipstick) Negative (Neg-Trace); Urobilinogen Normal mg/dL (Less than 2)
[2021-11-03 10:21] LABS: Bacteria/HPF Rare-Few HPF (None Seen); RBC/HPF 0-3 HPF (0-3); Squamous Epithelial 0-3 HPF (0-3); WBC/HPF 0-3 HPF (0-3)
== END 2021-11-03 08:45 | disposition home or self-care (01) ==
LOC: LABBT 08:44
PROVIDERS: ATTEND Urology
DX: Z01.812 Encounter for preprocedural laboratory examination (principal); N28.89 Other specified disorders of kidney and ureter; E11.42 Type 2 diabetes mellitus with diabetic polyneuropathy; E11.40 Type 2 diabetes mellitus with diabetic neuropathy, unspecified; M46.1 Sacroiliitis, not elsewhere classified; I10 Essential (primary) hypertension; M48.062 Spinal stenosis, lumbar region with neurogenic claudication; E66.9 Obesity, unspecified; N28.1 Cyst of kidney, acquired; R91.1 Solitary pulmonary nodule
CPT/HCPCS: 81001; 87086

== ENCOUNTER 2022-06-08 12:34 | Outpatient (CLI) | payer MEDICARE | END 2022-06-08 12:35 | disposition home or self-care (01) | LOC: ULT 12:34 | PROVIDERS: ATTEND Urology | DX: C64.2 Malignant neoplasm of left kidney, except renal pelvis (principal); N28.1 Cyst of kidney, acquired; Z90.5 Acquired absence of kidney | CPT/HCPCS: 71046; 76770 ==

== ENCOUNTER 2023-07-19 10:59 | Outpatient (CLI) | payer MEDICARE | END 2023-07-19 11:00 | disposition home or self-care (01) | LOC: ULT 10:59 | PROVIDERS: ATTEND Urology | DX: C64.2 Malignant neoplasm of left kidney, except renal pelvis (principal); N28.1 Cyst of kidney, acquired; R91.1 Solitary pulmonary nodule; D36.9 Benign neoplasm, unspecified site; Z90.5 Acquired absence of kidney; M47.9 Spondylosis, unspecified | CPT/HCPCS: 71046; 76770 ==

== ENCOUNTER 2024-07-30 07:27 | Outpatient (CLI) | payer MEDICARE | END 2024-07-30 07:28 | disposition home or self-care (01) | LOC: ULT 07:27 | PROVIDERS: ATTEND Urology | DX: C64.2 Malignant neoplasm of left kidney, except renal pelvis (principal); N28.1 Cyst of kidney, acquired; R91.1 Solitary pulmonary nodule; D36.9 Benign neoplasm, unspecified site; Z90.5 Acquired absence of kidney | CPT/HCPCS: 71046; 76770 ==

== ENCOUNTER 2025-09-25 09:54 | Outpatient (CLI) | payer MEDICARE | END 2025-09-25 09:55 | disposition home or self-care (01) | LOC: SCSBT 09:54 | PROVIDERS: ATTEND Family Medicine | DX: M81.0 Age-related osteoporosis without current pathological fracture (principal) | CPT/HCPCS: 77080 ==